=== PATIENT | female | born 1955 | race Caucasian/White ===

== ENCOUNTER 2017-05-23 15:37 | Emergency (ER) | payer MEDICAID ==
[2017-05-23 15:44] VITALS: BMI 41.7
[2017-05-23] MEDS ORDERED: DiphenhydrAMINE 50 mg/ml Inj IVP STA (17:08)
[2017-05-23] MEDS ORDERED: Sodium Chloride 0.9% 1,000 ML IV ONE (17:10)
[2017-05-23] MEDS ORDERED: Sodium Chloride 0.9% 1,000 ML ONE (17:42)
[2017-05-23] MEDS ORDERED: DiphenhydrAMINE 50 mg/ml Inj ONE (17:42)
--- NOTE | 2017-05-23 17:47 | C.PDOC ---
History Of Present Illness 61 year old female with PMHx of DM and migraines presents to the ED c/o a gradual onset of headache that is mostly located in the back of her head radiating toward the front that started in Monday. No thunderclap association , no worst, first or longest lasting headache. Patient states also having photophobia, chills, blurry vision along with her headache. Patient reports she went to the PMD who ordered and MRI that was done on 04/17/17 which showed and enlarged partially fluid filled pituitary fossa. Patient also has spinal stenosis which causes her chronic pain. Patient reports having an appointment to go see a neurologist that is on September of this year. Patient denies fever, chills, nausea, vomit, diarrhea, CP, SOB, weakness, numbness. Time Seen by Provider: 05/23/17 16:42 Chief Complaint (Nursing): Headache History Per: Patient History/Exam Limitations: no limitations Onset/Duration Of Symptoms: Days Current Symptoms Are (Timing): Still Present Quality: "Pain" Preceeding Symptoms: Known Migraine Symptoms Associated Symptoms: Photophobia, Blurred Vision Recent travel outside of the [place]: No Additional History Per: Patient Past Medical History Reviewed: Historical Data, Nursing Documentation, Vital Signs Vital Signs: Last Vital Signs Temp 97.9 F 05/23/17 20:05 Pulse 84 05/23/17 20:05 Resp 20 05/23/17 20:05 BP 108/59 L 05/23/17 20:05 Pulse Ox 96 05/23/17 20:05 - Medical History PMH: Hypothyroidism, Migraine Surgical History: No Surg Hx Family History: States: Unknown Family Hx - Social History Hx Alcohol Use: No Hx Substance Use: No - Immunization History Hx Influenza Vaccination: Yes Review Of Systems Constitutional: Positive for: Chills. Negative for: Fever Eyes: Positive for: Vision Change Cardiovascular: Negative for: Chest Pain, Palpitations Respiratory: Negative for: Cough, Shortness of Breath Gastrointestinal: Negative for: Nausea, Vomiting, Abdominal Pain Musculoskeletal: Negative for: Neck Pain Skin: Negative for: Rash Neurological: Positive for: Headache. Negative for: Weakness, Numbness, Dizziness Physical Exam - Physical Exam Appears: Non-toxic, No Acute Distress Skin: Normal Color, Warm, Dry Head: Atraumatic, Normacephalic Eye(s): bilateral: Normal Inspection Nose: No Discharge, No Deformity Oral Mucosa: Moist Neck: Normal ROM, Supple Chest: Symmetrical Cardiovascular: Rhythm Regular, No Murmur Respiratory: Normal Breath Sounds, No Rales, No Rhonchi, No Wheezing Gastrointestinal/Abdominal: Soft, No Tenderness, No Guarding, No Rebound Extremity: Normal ROM, No Pedal Edema, No Calf Tenderness, No Deformity, No Swelling Neurological/Psych: Oriented x3, Normal Speech, Normal Cognition Gait: Steady ED Course And Treatment - Laboratory Results Result Diagrams: 05/23/17 17:37 05/23/17 17:37 O2 Sat by Pulse Oximetry: 99 (On RA) Pulse Ox Interpretation: Normal - CT Scan/US Head CT Other Rad Studies (CT/US): Read By Radiologist, Radiology Report Reviewed CT/US Interpretation: PROCEDURE: CT HEAD WITHOUT CONTRAST. HISTORY: dizziness. COMPARISON: Images from noncontrast head CT performed 02/29/12. TECHNIQUE: Axial computed tomography images were obtained through the head/ brain without intravenous contrast. Radiation dose: Total exam DLP = 894.83 mGy-cm. This CT exam was performed using one or more of the following dose reduction techniques: Automated exposure control, adjustment of the mA and/or kV according to patient size, and/or use of iterative reconstruction technique. FINDINGS: Streak artifact obscures evaluation of the skullbase. HEMORRHAGE: No intracranial hemorrhage. BRAIN: Diffuse atrophy with prominence of the ventricles and sulci noted. No mass effect or edema. Mild scattered white matter hypodensities, which are nonspecific, but often seen with chronic microvascular ischemic disease. Please note that MRI with diffusion imaging is more sensitive in the detection of acute ischemic event. VENTRICLES: No hydrocephalus. CALVARIUM: Unremarkable. PARANASAL SINUSES: Unremarkable as visualized. No significant inflammatory changes. MASTOID AIR CELLS: Complete opacification/fluid within the right mastoid air cells. The left mastoid air cells appear clear. OTHER FINDINGS: None. IMPRESSION: Generalized atrophy. Scattered nonspecific white matter changes. Complete opacification/fluid within the right mastoid air cells. Correlate clinically for mastoiditis. Streak artifact obscures evaluation of the skullbase. Medical Decision Making Medical Decision Making: Impression : headache with migraine history Plan: * Head CT * Benadryl 25 mg IVP * IV fluids * UA Patient states she feels better after the medications, headache has resolved. Although EVELIA campbell mentioned mastoiditis patient has no tenderness over the mastoid and no clinical signs of mastoiditis. Will d/c patient home will the headache resolved. Disposition Counseled Patient/Family Regarding: Diagnosis, Need For Followup - Disposition Referrals: [facility] [Outside] Disposition: HOME/ ROUTINE Disposition Time: 19:36 Condition: IMPROVED Additional Instructions: follow up with medical clinic in 2 days call to make an appointment take medications as prescribed return to ER if symptoms worsens or progress Instructions: Migraine Headache (ED) Forms: [employer] (Greenlandic), General Discharge Instructions, Gen Discharge Inst Khmer, [employer] (Khmer) Print Language: MALAY - Clinical Impression Clinical Impression: Headache - Scribe Statement The provider has reviewed the documentation as recorded by the Scribe Brigido Carbone All medical record entries made by the Sherylibe were at my direction and personally dictated by me. I have reviewed the chart and agree that the record accurately reflects my personal performance of the history, physical exam, medical decision making, and the department course for this patient. I have also personally directed, reviewed, and agree with the discharge instructions and disposition.
[2017-05-23 17:50] LABS: BASO # 0.1 K/uL (0.0-0.2); BASO % 0.8 % (0.0-2.0); EOS # 0.1 K/uL (0.0-0.7); EOS % 0.6 % (0.0-4.0); HEMOGLOBIN 13.6 g/dL (11.0-16.0); LYMPH # 3.4 K/uL (1.0-4.3); LYMPH % 32.5 % (20.0-40.0); MEAN CELL VOLUME 89.4 fL (81.0-99.0); MEAN CORPUSCULAR HEMOGLOBIN 29.4 pg (27.0-31.0); MEAN CORPUSCULAR HGB CONC 32.9 g/dL (33.0-37.0); MEAN PLATELET VOLUME 8.3 fL (7.2-11.7); MONO # 0.8 K/uL (0.0-0.8); NEUT % 58.1 % (50.0-75.0); NRBC % 0.1 % (0.0-2.0); RBC 4.63 Mil/uL (3.80-5.20); RED CELL DISTRIBUTION WIDTH 15.1 % (11.5-14.5); WHITE BLOOD COUNT 10.4 K/uL (4.8-10.8)
[2017-05-23 17:52] LABS: ALB/GLOB RATIO 0.8 (1.0-2.1); ALBUMIN 3.6 g/dL (3.5-5.0); ALT/SGPT 24 U/L (9-52); AST/SGOT 16 U/L (14-36); BLOOD UREA NITROGEN 19 mg/dL (7-17); CALCIUM 8.4 mg/dl (8.6-10.4); GFR AFRICAN-AMERICAN > 60; GFR NON-AFRICAN AMERICAN > 60
--- NOTE | 2017-05-23 18:07 | CT ---
PROCEDURE: CT HEAD WITHOUT CONTRAST. HISTORY: dizziness COMPARISON: Images from noncontrast head CT performed 02/29/12 TECHNIQUE: Axial computed tomography images were obtained through the head/brain without intravenous contrast. Radiation dose: Total exam DLP = 894.83 mGy-cm. This CT exam was performed using one or more of the following dose reduction techniques: Automated exposure control, adjustment of the mA and/or kV according to patient size, and/or use of iterative reconstruction technique. FINDINGS: Streak artifact obscures evaluation of the skullbase. HEMORRHAGE: No intracranial hemorrhage. BRAIN: Diffuse atrophy with prominence of the ventricles and sulci noted. No mass effect or edema. Mild scattered white matter hypodensities, which are nonspecific, but often seen with chronic microvascular ischemic disease. Please note that MRI with diffusion imaging is more sensitive in the detection of acute ischemic event. VENTRICLES: No hydrocephalus. CALVARIUM: Unremarkable. PARANASAL SINUSES: Unremarkable as visualized. No significant inflammatory changes. MASTOID AIR CELLS: Complete opacification/fluid within the right mastoid air cells. The left mastoid air cells appear clear. OTHER FINDINGS: None. IMPRESSION: Generalized atrophy. Scattered nonspecific white matter changes. Complete opacification/fluid within the right mastoid air cells. Correlate clinically for mastoiditis. Streak artifact obscures evaluation of the skullbase.
[2017-05-23 20:06] VITALS: BP 108/59; PULSE 84; RESP 20; TEMP 97.9
[2017-05-24 00:16] VITALS: O2SAT 99
== END 2017-05-23 20:08 | disposition home or self-care (01) ==
LOC: C.ER 15:37
DX: R51 Headache (principal); E03.9 Hypothyroidism, unspecified
CPT/HCPCS: 70450; 80053; 85025; 96361; 96374; 96375; 99285; J0780; J1200; J7040